=== PATIENT | female | born 1980 | race Caucasian/White ===

== ENCOUNTER → 2019-11-08 | Outpatient (CLI) | payer BC, OTHER ==
[2019-11-08 09:08] LABS: BASO % 0.2 % (0.0-1.0); HEMATOCRIT 38.8 % (36.0-47.0); HEMOGLOBIN 12.9 g/dl (12.0-15.5); LYMPH # 1.1 10^3/uL (1.5-5.0); LYMPH % 27.3 % (24.0-44.0); MEAN CORPUSCULAR HEMOGLOBIN 30.9 pg (27.0-33.0); MEAN CORPUSCULAR HGB CONC 33.2 g/dl (32.0-36.5); MEAN CORPUSCULAR VOLUME 92.8 fl (80.0-96.0); MONO # 0.3 10^3/uL (0.0-0.8); NEUTROPHILS # 2.6 10^3/uL (1.5-8.5); NEUTROPHILS % 63.3 % (36.0-66.0); PLATELET COUNT, AUTOMATED 232 10^3/uL (150-450); RED BLOOD COUNT 4.18 10^6/uL (4.00-5.40); WHITE BLOOD COUNT 4.1 10^3/uL (4.0-10.0)
[2019-11-08 09:39] LABS: ALBUMIN 3.7 GM/DL (3.2-5.2); ALT/SGPT 15 U/L (12-78); BILIRUBIN,DIRECT 0.2 MG/DL (0.0-0.2); BILIRUBIN,TOTAL 0.5 MG/DL (0.2-1.0); TOTAL PROTEIN 7.1 GM/DL (6.4-8.2)
[2019-11-08 10:26] LABS: H PYLORI QUALITATIVE IgG NEGATIVE (NEGATIVE)
--- NOTE | 2019-11-08 10:38 | REP ---
COMPLETE ABDOMINAL SONOGRAPHY: HISTORY: Epigastric pain. Please evaluate for biliary tree, pancreas, endometriosis. FINDINGS: Scanning through right upper quadrant of the abdomen demonstrates a homogeneous liver except for the presence of a 1.1 x 0.9 x 0.8 cm hyperechoic area in the posterosuperior aspect of the right hepatic lobe. This is compatible with a small hemangioma or hepatic granuloma. The gallbladder surgically absent. No other focal liver lesion is seen. Common bile duct is normal measuring 0.5 cm in greatest diameter. No pancreatic abnormality is noted. There is no evidence of ascites. Normal caliber aorta is seen measuring 2.0 cm in greatest AP dimension. The spleen is normal in size, 9.5 cm in greatest diameter, and homogeneous in texture. Renal cortical echogenicity pattern is normal and contours are smooth bilaterally. There is no evidence of hydronephrosis, cyst, or mass. Right kidney measures 11.3 x 4.8 x 4.3 cm. Left renal dimensions are 11.7 x 8 5.5 x 505 cm. IMPRESSION: Small hemangioma in the superior aspect of the liver. Post cholecystectomy. Otherwise negative complete abdominal sonography. Electronically Signed by Juan Manuel Xavier MD 11/08/2019 02:23 P
[2019-11-09 14:21] LABS: CERULOPLASMIN 23.6 mg/dL (19.0-39.0); TISSUE TRANSGLUTAMINASE IgA <2 U/mL (0-3); UNITSIGA FOR GLIADIN IGA 2 units (0-19); UNITSIGG FOR GLIADIN IGG 2 units (0-19)
== END ==
LOC: M RAD 08:31
PROVIDERS: ATTEND Internal Medicine Gastroenterology
DX: D18.09 Hemangioma of other sites (principal); Z90.49 Acquired absence of other specified parts of digestive tract